=== PATIENT | female | born 1980 | race Caucasian/White ===

== ENCOUNTER 2024-05-25 13:37 | Emergency (ER) | payer OTHER ==
[~2024-05-25] VITALS: Ht 165.1 cm; Wt 86.2 kg
[2024-05-25] MEDS ORDERED: Methadone HCL 10 MG TAB PO ONE (14:10)
== END 2024-05-25 14:45 | disposition home or self-care (01) ==
LOC: ER 13:37
DX: Z76.89 Persons encountering health services in other specified circumstances (principal)
CPT/HCPCS: 99281; A9270